=== PATIENT | male | born 1975 ===

== ENCOUNTER 2017-06-17 00:38 | Inpatient (IN) | payer OTHER, MEDICAID ==
[2017-06-16 13:19] LABS: INR 0.95
[2017-06-17] VITALS (15 sets, daily range): BP systolic 75–165; BP diastolic 61–101
[~2017-06-17] VITALS: Ht 195.6 cm; Wt 157.9 kg
[~2017-06-17 00:38] MED LIST: CYCL10TA29 PO; ESCI20TA38 PO; LOSA-54 PO; NAPR-1043 PO
--- NOTE | 2017-06-17 04:16 | LEVENE H&P ---
DATE OF ADMISSION: June 17, 2017 IDENTIFICATION/CHIEF COMPLAINT The patient is a 41-year-old gentleman with a chief complaint of left knee pain. HISTORY OF PRESENT ILLNESS The patient has a history of work-related injury to his knee with meniscal tear and chondral injury. This has gone on to become progressively painful and debilitating, and has led to end-stage post-traumatic arthritis. Surgery is indicated at this time to relieve symptoms after failure of all nonoperative measures. PAST MEDICAL HISTORY Notable for hypertension controlled on medication, depression. ALLERGIES He has no known drug allergies. CURRENT MEDICATIONS 1. Losartan 25 mg p.o. daily. 2. Lexapro one p.o. daily. 3. NSAIDS as needed. PAST SURGICAL HISTORY Notable for hernia repair and prior arthroscopic meniscectomy. REVIEW OF SYSTEMS Notable for occasional migraine headaches. SOCIAL HISTORY He has no history of tobacco use. He drinks alcohol a couple of times a week, denies abuse, denies drug use. FAMILY HISTORY Negative. PHYSICAL EXAMINATION GENERAL: This is a well-developed, well-nourished male who appears stated age. HEENT: Normocephalic, atraumatic. NECK: Supple. LUNGS: Clear. HEART: Regular. ABDOMEN: Soft. ORTHOPEDIC EXAMINATION: Left knee has varus alignment. He is stiff at the end range. Effusion is present. Extensor function is intact. Gross stability is good. RADIOGRAPHIC DATA Radiographs demonstrate end-stage medial compartment DJD. ASSESSMENT Left knee post-traumatic arthritis with persistent pain and disability refractory to conservative care. PLAN Per patient request, we are going to proceed with total knee replacement. Nature of this procedure, risks, benefits, alternatives are reviewed. The risks of the procedure include but are not limited to , major medical or anesthetic complication, infection, neurovascular injury, blood transfusion, stiffness, scarring, fracture, tendon rupture, instability, implant loosening, migration or failure, persistent or recurrent pain, need for additional surgery and other unforeseen. He understands and wishes to proceed. A signed permit is placed in the chart. No guarantees are given or implied. [facility]
[2017-06-17] MEDS ORDERED: NORMOSOL R SOLN(*) 1000 ML BAG 1,000 ML IV PRN ×2 (07:45→11:10)
[2017-06-17] MEDS ORDERED: TRANEXAMIC AC 1000 MG/10ML SDV 1,000 MG in DEXTROSE 5% 50 ML BAG 50 ML IV ONE (07:45)
[2017-06-17] MEDS ORDERED: MIDAZOLAM 2 MG/2 ML VIAL IVP PRN (07:45)
[2017-06-17] MEDS ORDERED: ceFAZolin(*) 2GM/D5W 50ML 50 ML IVPB ONE (07:45)
[2017-06-17] MEDS ORDERED: LIDOCAINE/SOD BICARB 8.4% SYR ID ONE (07:45)
[2017-06-17] MEDS ORDERED: cloNIDine EPIDUR INJ 100MCG/ML 40 MCG, ROPIVACAINE 0.5% 20 ML VIAL 25 ML, EPINEPHrine H... INJ ONE (07:45)
[2017-06-17] MEDS ORDERED: FAMOTIDINE 20 MG TAB PO ONE (07:45)
[2017-06-17] MEDS ORDERED: MIDAZOLAM 2 MG/2 ML VIAL ONE (08:26)
[2017-06-17] MEDS ORDERED: fentaNYL CITR 100 MCG/2 ML AMP ONE ×3 (09:15→10:58)
[2017-06-17] MEDS ORDERED: ROCURONIUM BROM 10 MG/ML 10 ML ONE (09:44)
[2017-06-17] MEDS ORDERED: ONDANSETRON 4 MG/2 ML VIAL ONE (09:44)
[2017-06-17] MEDS ORDERED: LIDOCAINE MPF 1% 5 ML VIAL ONE (09:44)
[2017-06-17] MEDS ORDERED: DEXAMETHASONE SOD PHOS 10MG/ML ONE (09:44)
[2017-06-17] MEDS ORDERED: PROPOFOL EMUL(*) 10MG/ML 20 ML 40 ML ONE (09:44)
[2017-06-17] MEDS ORDERED: SUGAMMADEX SOD 500 MG/5 ML SDV ONE (09:44)
[2017-06-17] MEDS ORDERED: diphenhydrAMINE 50 MG/ML VIAL IVP PRN (11:10)
[2017-06-17] MEDS ORDERED: PROMETHAZINE 25 MG/ML 1 ML AMP IVP PRN (11:10)
[2017-06-17] MEDS ORDERED: ACETAMINOPHEN 325 MG TAB PO PRN (11:10)
[2017-06-17] MEDS ORDERED: ZOLPIDEM TARTRATE 5 MG TAB PO PRN (11:10)
[2017-06-17] MEDS ORDERED: BENZOCAINE/MENTHOL 1 EACH LOZG PO PRN (11:10)
[2017-06-17] MEDS ORDERED: BISACODYL 10 MG SUPP PR PRN (11:10)
[2017-06-17] MEDS ORDERED: FLUSH 10 ML SYR IVP PRN (11:10)
[2017-06-17] MEDS ORDERED: HYDROmorphone HCL 2 MG/ML SDV ONE (11:37)
--- NOTE | 2017-06-17 12:00 | RADIOLOGY IMAGING REPORT ---
FACILITY: [facility] - [place] PATIENT NAME: Vanessa Mason : 1975 MR: [id number] V: [id number] EXAM DATE: ORDERING PHYSICIAN: KHAI FELIPE TECHNOLOGIST: Location: [facility] [place] Patient: Vanessa Mason : 1975 Visit/Account:[id number] Date of Sevice: 06/17/2017 EXAMINATION: Left knee, 2 views 06/17/2017 10:27 AM HISTORY: CHECK KNEE PROSTHESIS PLACEMENT COMPARISON: None available FINDINGS: Status post left TKA. Femoral and tibial components appear to be well seated and articula ting appropriately. Postoperative soft tissue gas anteriorly as well as ventral cutaneous janene. IMPRESSION: Status post left TKA. Report Dictated By: Jayden Womack MD at 06/17/2017 11:54 AM Report E-Signed By: Jayden Womack MD at 06/17/2017 11:54 AM WSN:[email or web address]
[2017-06-17] MEDS: APAP/HYDROCODONE 325/7.5 TAB PO PRN ×3 (12:32→20:35)
--- NOTE | 2017-06-17 14:23 | Hospitalist Progress Note ---
Subjective Progress Notes Subjective No cp/sob. 1700cc of crystalloid, TXA and dexamethasone given intra-op. Physical Exam Vital Signs Date Time Temp Pulse Resp B/P (MAP) Pulse Ox O2 Delivery O2 Flow Rate FiO2 06/17/17 12:52 94 Nasal Cannula 3.0 06/17/17 12:15 99.4 79 16 131/61 (84) Intake and Output 06/18/17 07:00 Intake Total 2500 ml Balance 2500 ml Intake Oral 800 ml IV Total 1700 ml General Appearance: Alert, Awake, No Acute Distress Cardiovascular: Regular Rate and Rhythm Respiratory: Clear to Auscultation Extremities: No Edema Assessment and Plan Problems: (1) Status post knee replacement Status: Acute Assessment & Plan: No CV/pulmonary issues. No history of DVT/PE. The patient will be on ASA 325mg a day for 30 days after surgery for blood clot prevention. (2) HTN (hypertension) Status: Chronic Assessment & Plan: Continue losartan and HCTZ with parameters. BMP daily. Baseline creatinine is 0.9. (3) Depression Status: Chronic Assessment & Plan: Continue lexapro. (4) Severe obesity (BMI >= 40) Status: Chronic Assessment & Plan: Anesthesia has recommended he wear CPAP while resting for the next 24 hours. The patient certainly might have MIRLANDE. Will defer to his PCP for evaluation. Exam Sepsis Risk: No Definite Risk Problem Qualifiers (1) Status post knee replacement: Laterality: left Qualified Codes: Z96.652 - Presence of left artificial knee joint NOEMI MAST MD Jun 17, 2017 14:22
[2017-06-17] MEDS: ceFAZolin 1 GM VIAL IVPB SCH (16:33)
[2017-06-17] MEDS: CELECOXIB 200 MG CAP PO SCH (16:33)
[2017-06-17] MEDS: ESCITALOPRAM OXALATE 10 MG TAB PO SCH (20:35)
[2017-06-17] MEDS: LOSARTAN POTASSIUM 50 MG TAB PO SCH (20:35)
--- NOTE | 2017-06-17 20:50 | OPERATIVE REPORT 1 ---
EVENT DATE: June 17, 2017 SURGEON: Eric Lees MD ANESTHESIOLOGIST: Miki Ku MD ANESTHESIA: General plus adductor canal block. [employer]ANT SPECIALIST: SARAH Hamilton PREOPERATIVE DIAGNOSIS Left knee degenerative joint disease. POSTOPERATIVE DIAGNOSIS Left knee degenerative joint disease. PROCEDURE PERFORMED Left total knee arthroplasty. ESTIMATED BLOOD LOSS Minimal. DRAINS None. SPECIMENS None. COMPLICATIONS None apparent. TOURNIQUET TIME 47 minutes IMPLANTS USED [employer] knee system, a 7 left PS femur, a 7 standard tibial baseplate , a 39 mm universal, cemented, all-polyethylene patellar button, and a 13 PS tibial tray liner. Polyethylene is X3. INDICATIONS Vanessa is a 41-year-old gentleman who has had a long and protracted jay with posttraumatic arthritis. He has symptoms which are debilitating and refractory to extensive conservative measures. Surgery is indicated at this time to relieve symptoms. DESCRIPTION OF PROCEDURE The patient was taken to the operating room and placed supine on the operating table. Adductor canal block was placed by the anesthesiologist. General anesthesia was induced. Antibiotics and TXA were administered IV. The left lower extremity was prepped and draped in the usual sterile fashion for orthopedic surgery. The limb was exsanguinated with an Esmarch bandage. The tourniquet was inflated to 275 mmHg. A midline longitudinal incision was made and carried down through the skin and subcutaneous tissue to the extensor mechanism. Full-thickness flaps were developed far enough medially to allow a medial parapatellar arthrotomy be performed. The patella was everted. The knee was brought into the flexed position. The fat pad, the anterior horn of the meniscus, and the cruciate ligaments were debrided. A subperiosteal medial release was initiated in a very limited, titrated fashion to balance the knee with slight varus alignment. The step drill was used to enter the distal femur. A 10-inch long alignment guide was used to engage the isthmus. The cut was sent for 5 degrees valgus relative to the anatomic axis. A 10 mm resection block was applied, and the distal femoral cut was made with an oscillating saw. AP sizing guide was applied for the distal femoral cut and positioned for 3 degrees of external rotation relative to the posterior condyle. A size 7 was optimal without risk of notching. A four-in-one cutting block was applied. Anterior, posterior, posterior chamfer, and anterior chamfer cuts were made respectively. The PS block was applied and centered. Medial and lateral bone was removed through the block. The trial femur had [id number] fit. Attention was turned to tibia preparation. The extramedullary guide was applied and positioned for varus, valgus, posterior slope, and rotation. This was set to resect 9 mm from the relatively intact lateral tibial plateau. It was dropped down a couple more millimeters to assure an adequate cut. The block was pinned. Extramedullary alignment check was made. The cut was made with an oscillating saw. The gaps were balanced and symmetric with no additional releases required. A size 7 tibial baseplate provided good bony coverage without soft tissue overhang. The trial tibial baseplate was inserted along with the trial liner and the trial femur. The knee was brought to full extension. The patella was taken from a starting thickness of 26 mm to a residual of 15 mm with a patellar clamp and an oscillating saw. The 39 provided optimal bony coverage without soft tissue overhang. Lug holes were drilled. The patella tracked nicely with the no-touch technique. The final tibial preparation consisted of assuring appropriate rotational and translational position of the component. The boss was reamed. The fin was punched. The surfaces were copiously lavaged. Mixed polymethyl methacrylate was made and the components cemented in a single stage. When the cement had fully polymerized, the tourniquet was deflated. Hemostasis was assured. A 13 liner filled up the gap ideally, allowing the knee to drop to full extension without hyperextension, providing optimal soft tissue tension and stability. The tray was lavaged and dried, and the actual liner was locked into the baseplate. The joint was reduced. The arthrotomy was closed in flexion with # 2 Ethibond, the subcutaneous tissue with 3-0 Vicryl, and the skin with surgical janene, followed by Xeroform and 4 x 4's dry, sterile dressing and a compression wrap. The patient was awakened from anesthesia and taken to the recovery room in stable condition having tolerated the procedure well. PLAN The plan is for standard TKA rehab protocol. CHELSEY
[2017-06-18] MEDS: APAP/HYDROCODONE 325/7.5 TAB PO PRN ×5 (00:23→17:46)
[2017-06-18] MEDS: ceFAZolin 1 GM VIAL IVPB SCH ×2 (00:23→08:19)
[2017-06-18 00:25] VITALS: BP 131/75
[2017-06-18] MEDS: DIAZEPAM 5 MG TAB PO PRN ×3 (03:54→20:32)
[2017-06-18 04:28] VITALS: BP 147/75
[2017-06-18] MEDS: diphenhydrAMINE 25 MG CAP PO PRN ×2 (04:38→10:55)
[2017-06-18 07:20] VITALS: BP 126/75
[2017-06-18] MEDS: HYDROCHLOROTHIAZIDE 25 MG TAB PO SCH (08:19)
[2017-06-18] MEDS: CELECOXIB 200 MG CAP PO SCH ×2 (08:19→17:12)
[2017-06-18] MEDS: ASPIRIN 325 MG TAB PO SCH (08:19)
--- NOTE | 2017-06-18 08:30 | Hospitalist Progress Note ---
Subjective Progress Notes Subjective No cp/sob. No reported apneic events overnight. Physical Exam Vital Signs Date Time Temp Pulse Resp B/P (MAP) Pulse Ox O2 Delivery O2 Flow Rate FiO2 06/18/17 07:22 94 Nasal Cannula 1.0 06/18/17 07:20 99.2 78 16 126/75 (92) Intake and Output 06/19/17 07:00 Intake Total 1000 ml Balance 1000 ml Intake Oral 1000 ml General Appearance: Alert, Awake, No Acute Distress Result Diagram: 06/18/17 0550 Assessment and Plan Problems: (1) Status post knee replacement Status: Acute Assessment & Plan: No CV/pulmonary issues. No history of DVT/PE. The patient will be on ASA 325mg a day for 30 days after surgery for blood clot prevention. (2) HTN (hypertension) Status: Chronic Assessment & Plan: Continue losartan and HCTZ with parameters. BMP daily. Baseline creatinine is 0.9. (3) Depression Status: Chronic Assessment & Plan: Continue lexapro. (4) Severe obesity (BMI >= 40) Status: Chronic Assessment & Plan: Anesthesia has recommended he wear CPAP for 24 hours after surgery. He did not have any apneic events overnight, so will D/C. The patient certainly might have MIRLANDE. Will defer to his PCP for evaluation. Exam Sepsis Risk: No Definite Risk Problem Qualifiers (1) Status post knee replacement: Laterality: left Qualified Codes: Z96.652 - Presence of left artificial knee joint NOEMI MAST MD Jun 18, 2017 08:30
[2017-06-18] MEDS ORDERED: KETOROLAC 15 MG/ML VIAL IVP ONE (09:40)
[2017-06-18 10:05] VITALS: Ht 195.6 cm; Wt 157.9 kg
[2017-06-18 16:35] VITALS: BP 133/67
[2017-06-18 20:01] VITALS: BP 116/75
[2017-06-18] MEDS: MAGNESIUM HYDROXIDE* 30ML UDCP PO PRN (20:32)
[2017-06-18] MEDS: ESCITALOPRAM OXALATE 10 MG TAB PO SCH (20:32)
[2017-06-18] MEDS: LOSARTAN POTASSIUM 50 MG TAB PO SCH (20:32)
[2017-06-18 23:57] VITALS: BP 128/72
[2017-06-19] MEDS: APAP/HYDROCODONE 325/7.5 TAB PO PRN ×4 (01:59→20:20)
[2017-06-19] MEDS: DIAZEPAM 5 MG TAB PO PRN ×2 (02:34→09:15)
[2017-06-19 04:00] VITALS: BP 137/78
[2017-06-19 07:39] VITALS: BP 143/84
[2017-06-19] MEDS: CELECOXIB 200 MG CAP PO SCH ×2 (08:30→17:13)
[2017-06-19] MEDS: HYDROCHLOROTHIAZIDE 25 MG TAB PO SCH (08:30)
[2017-06-19] MEDS: ASPIRIN 325 MG TAB PO SCH (08:30)
--- NOTE | 2017-06-19 09:15 | Hospitalist Progress Note ---
Subjective Progress Notes Subjective He only c/o some constipation and surgical site pain. Physical Exam Vital Signs Date Time Temp Pulse Resp B/P (MAP) Pulse Ox O2 Delivery O2 Flow Rate FiO2 06/19/17 04:00 97.6 85 16 137/78 (97) 92 Nasal Cannula 1.0 Intake and Output 06/20/17 07:00 Intake Total 180 ml Balance 180 ml Intake Oral 180 ml General Appearance: Alert, Awake Cardiovascular: Regular Rate and Rhythm Respiratory: Clear to Auscultation GI: Soft and Non-Tender Result Diagram: 06/19/17 0531 Assessment and Plan Problems: (1) Status post knee replacement Status: Acute Assessment & Plan: Stable post-op. No history of DVT/PE. The patient will be on ASA 325mg a day for 30 days after surgery for blood clot prevention. (2) HTN (hypertension) Status: Chronic Assessment & Plan: Continue losartan and HCTZ with parameters. (3) Depression Status: Chronic Assessment & Plan: Continue lexapro. (4) Severe obesity (BMI >= 40) Status: Chronic Assessment & Plan: Anesthesia initially recommended he wear CPAP for 24 hours after surgery. He did not have any obvious apneic events the first night, so it was D/C'd. The patient certainly might have MIRLANDE. Will defer to his PCP for any further evaluation. Exam Sepsis Risk: No Definite Risk Problem Qualifiers (1) Status post knee replacement: Laterality: left Qualified Codes: Z96.652 - Presence of left artificial knee joint DENNY GLEASON MD Jun 19, 2017 09:15
[2017-06-19] MEDS: MAGNESIUM HYDROXIDE* 30ML UDCP PO PRN (09:19)
[2017-06-19 11:27] VITALS: BP 135/66
[2017-06-19 19:35] VITALS: BP 140/82
[2017-06-19] MEDS: ESCITALOPRAM OXALATE 10 MG TAB PO SCH (20:20)
[2017-06-19] MEDS: LOSARTAN POTASSIUM 50 MG TAB PO SCH (20:20)
[2017-06-19 23:31] VITALS: BP 158/87
[2017-06-20 03:23] VITALS: BP 129/94
[2017-06-20] MEDS: APAP/HYDROCODONE 325/7.5 TAB PO PRN ×2 (03:28→09:26)
[2017-06-20] MEDS ORDERED: CELE-1 PO (07:13)
[2017-06-20] MEDS ORDERED: HYDR-4308 PO (07:13)
[2017-06-20] MEDS ORDERED: DIA5 PO (07:14)
[2017-06-20 07:43] VITALS: BP 136/88
--- NOTE | 2017-06-20 08:11 | Hospitalist Progress Note ---
Subjective Progress Notes Subjective No cp/sob. Physical Exam Vital Signs Date Time Temp Pulse Resp B/P (MAP) Pulse Ox O2 Delivery O2 Flow Rate FiO2 06/20/17 07:43 98.3 74 20 136/88 (104) 94 Room Air 06/20/17 03:23 0.5 Respiratory: Clear to Auscultation Result Diagram: 06/20/17 0520 Assessment and Plan Problems: (1) Status post knee replacement Status: Acute Assessment & Plan: Stable post-op. No history of DVT/PE. The patient will be on ASA 325mg a day for 30 days after surgery for blood clot prevention. (2) Hypoxia Status: Acute Assessment & Plan: There is low clinical suspicion for PE or pneumonia. It is because of [place]'s high elevation, narcotic use and recent surgery. If the patient goes home on O2, then the patient will follow up the PCP to check a room air saturation in a couple of days. (3) HTN (hypertension) Status: Chronic Assessment & Plan: Continue losartan and HCTZ with parameters. (4) Depression Status: Chronic Assessment & Plan: Continue lexapro. (5) Severe obesity (BMI >= 40) Status: Chronic Assessment & Plan: Anesthesia initially recommended he wear CPAP for 24 hours after surgery. He did not have any obvious apneic events the first night, so it was D/C'd. The patient certainly might have MIRLANDE. Will defer to his PCP for any further evaluation. Exam Sepsis Risk: No Definite Risk Problem Qualifiers (1) Status post knee replacement: Laterality: left Qualified Codes: Z96.652 - Presence of left artificial knee joint NOEMI MAST MD Jun 20, 2017 08:11
[2017-06-20] MEDS ORDERED: ASPI-757 PO (08:12)
[2017-06-20] MEDS: HYDROCHLOROTHIAZIDE 25 MG TAB PO SCH (09:00)
[2017-06-20] MEDS: CELECOXIB 200 MG CAP PO SCH (09:26)
[2017-06-20] MEDS: DIAZEPAM 5 MG TAB PO PRN (09:26)
[2017-06-20] MEDS: ASPIRIN 325 MG TAB PO SCH (09:27)
== END 2017-06-20 11:40 | disposition home or self-care (01) | DRG 470 ==
LOC: OR 00:38 → MED 12:15
PROVIDERS: ADMIT Orthopaedic Surgery; ATTEND Orthopaedic Surgery
PROC: 0SRD0J9 Replacement of Left Knee Joint with Synthetic Substitute, Cemented, Open Approach (ICD-10-PCS; principal; 2017-06-17 08:32)
DX: M17.32 Unilateral post-traumatic osteoarthritis, left knee (principal); Z68.41 Body mass index [BMI] 40.0-44.9, adult; I10 Essential (primary) hypertension; F32.9 Major depressive disorder, single episode, unspecified; M21.162 Varus deformity, not elsewhere classified, left knee; E66.01 Morbid (severe) obesity due to excess calories; G47.33 Obstructive sleep apnea (adult) (pediatric); R09.02 Hypoxemia; T70.20XA Unspecified effects of high altitude, initial encounter; T40.605A Adverse effect of unspecified narcotics, initial encounter; Y92.230 Patient room in hospital as the place of occurrence of the external cause; Y83.8 Other surgical procedures as the cause of abnormal reaction of the patient, or of later complication, without mention of misadventure at the time of the procedure; Y79.3 Surgical instruments, materials and orthopedic devices (including sutures) associated with adverse incidents; Z99.81 Dependence on supplemental oxygen
CPT/HCPCS: 36415; 82310; 82374; 82435; 82565; 82947; 84132; 84295; 84520; 85610; 86850; 86900; 86901; 97161; C1713; C1776; J0171; J0690; J0735; J1100; J1170; J1885; J2001; J2250; J2405; J2704; J2795; J3010; J7050; J7060; Q0163